=== PATIENT | male | born 1985 | race Caucasian/White ===

== ENCOUNTER 2019-02-23 11:32 | Inpatient (IN) ==
--- NOTE | 2019-02-07 11:38 | PAT Medication Instructions ---
Medication Instructions Date of Service February 07, 2019 Home Medications ibuprofen [Motrin IB] 200 mg PO Q6H PRN pantoprazole [Protonix] 40 mg PO BID ASK your surgeon for instructions ibuprofen [Motrin IB] 200 mg PO Q6H PRN Take morning of surgery With a small sip of water, OTHERWISE NOTHING TO EAT OR DRINK AFTER MIDNIGHT: pantoprazole [Protonix] 40 mg PO BID Take evening before surgery pantoprazole [Protonix] 40 mg PO BID Other Notes If you have any questions please call us at [phone] or [phone] or [phone] or [phone]
--- NOTE | 2019-02-08 14:10 | Anesthesiology Consultation ---
Date of Service February 08, 2019 Assessment & Plan (1) Encounter for pre-operative examination: - Awaiting review preop testing (labs, EKG, CXR). Chart Review Chart Review: Patient seen in Pre Admission Testing Teaching & Discussion Pre-Anesthesia Teaching/Discussion Notes: Instructed NPO after midnight before surgery,except medications with 15 cc of water. Medication instructions provided according to the PAT guidelines. History Surgery Operation Date: 02/23/19 14:35 Proposed Procedures p L4-S1 Decompression and Fusion, Possible L3-L4, Spinal Cord Monitoring - Yunior Garcia DO Height/Weight Height: 6 ft Weight: 131.6 kg Allergies Allergy/AdvReac Type Severity Reaction Status Date / Time No Known Allergies Allergy Verified 02/05/19 15:04 Medications Home Medications Medication Instructions Recorded Confirmed Last Taken ibuprofen [Motrin IB] 200 mg PO Q6H PRN 02/05/19 02/05/19 Unknown pantoprazole [Protonix] 40 mg PO BID 02/05/19 02/05/19 Unknown Past Medical History Medical History Degenerative disc disease Focal nodular hyperplasia of liver GERD (gastroesophageal reflux disease) controlled Hearing deficit right ear History of anxiety History of depression Obesity Osteoarthritis PTSD (post-traumatic stress disorder) Spinal stenosis TBI (traumatic brain injury) 2005 - residual memory loss, headaches Exercise / Class Metabolic Activity III < 4 Walking/Shop/Light housework Past Family History Family History Grandfather (Maternal) Family history of diabetes mellitus Grandmother (Maternal) Family history of diabetes mellitus Past Surgical History Surgical History History of colonoscopy History of esophagogastroduodenoscopy (EGD) History of hernia repair as an History of wisdom tooth extraction Past Anesthesia History No Hx of Anesthesia Complications *Brother: Post-op O2 sats dropped with multiple shoulder surgeries* History of PONV No Hx of PONV and No Hx of Motion Sickness Social History Smoking Status: Current every day smoker tobacco type: cigarettes Smoking cigarettes per day: 1 cig per day Do You Dip or Chew Tobacco: No Hx Alcohol Use: Yes Alcohol type: beer and hard liquor alcohol intake frequency: a few times a week Hx Substance Use: No substance use type: does not use Review of Systems Reflux controlled. Patient denies chest pain, shortness of breath, cough, wheezing, palpitations. Physical Exam Vital Signs VITALS BP 124/84 P 87 TEMP 98.61 SP02 97%RA RESP 16 PHYSICAL Full neck and c-spine range of motion. Full TMJ range of motion. TMD 3 finger breaths Mallampati Score 2 Dentition: caps on upper front, missing molars Lungs: clear throughout to auscultation Cardiac: regular rate and rhythm, no murmurs noted Spine: normal Carotid arteries: negative bruit Extremities: no edema Trimmed luo.
--- NOTE | 2019-02-08 15:01 | XRay Report ---
XR chest Pre-admission PA/Lat CLINICAL HISTORY: 33 years-old Male presenting with preoperative evaluation. TECHNIQUE: PA and lateral views of the chest were obtained. COMPARISON: None. FINDINGS: Cardiomediastinal silhouette normal. Lungs and pleural spaces clear. Osseous structures normal. Upper abdomen normal. IMPRESSION: 1. No acute cardiopulmonary disease. Electronically signed by: Elias Canales M.D. 02/08/2019 3:00 PM
[2019-02-08 15:36] LABS: Basophils # (auto) 0.03 K/uL (0-0.2); Basophils % (auto) 0.4 %; Eosinophils # (auto) 0.17 K/uL (0-0.5); Hematocrit (blood only) 42.3 % (42-52); Hemoglobin 14.3 g/dL (14.0-18.0); Immature Granulocytes # (auto) 0.03 K/uL (0.00-0.02); Immature Granulocytes % (auto) 0.4 %; Lymphocytes # (auto) 1.55 K/uL (1.2-3.4); Lymphocytes % (auto) 18.3 %; Mean Corpuscular Hemoglobin 31.3 pg (25-34); Mean Corpuscular Hgb Conc 33.8 g/dL (32-36); Mean Corpuscular Volume 92.6 fL (80-100); Mean Platelet Volume 10.6 fL (7.4-10.4); Monocytes # (auto) 0.51 K/uL (0.11-0.59); Neutrophils # (auto) 6.16 K/uL (1.4-6.5); Neutrophils % (auto) 72.9 %; Platelet Count 218 K/uL (130-400); RDW Coefficient of Variation 13.2 % (11.5-14.5); RDW Standard Deviation 44.7 fL (36.4-46.3); Red Blood Count 4.57 M/uL (4.7-6.1); White Blood Count 8.45 K/uL (4.8-10.8)
[2019-02-08 15:43] LABS: Appearance Urine Clear (Clear); Bacteria Urine Automated Negative (Negative); Bilirubin Urine Negative (Negative); Blood Urine Negative (Negative); Cast Urine Automated 0 /lpf (0-5); Color Urine Yellow; Epithelial Cell Urine Auto 0-5 /lpf (0-5); Glucose Urine UA Negative (Negative); Ketones Urine Negative (Negative); Leukocyte Esterase Urine Trace (Negative); Nitrite Urine Negative (Negative); Protein Urine Negative (Negative); RBC Urine Automated 0-4 /hpf (0-4); Specific Gravity Urine 1.019 (1.000-1.030); Urobilinogen Urine Negative (Negative); pH Urine 5.5 (4.5-7.5)
[2019-02-08 16:06] LABS: Partial Thromboplastin Ratio 0.9; Partial Thromboplastin Time 25.3 Seconds (21.0-31.0); Prothrombin Time 10.4 Seconds (9.0-12.0)
[2019-02-08 16:36] LABS: BUN Creatinine Ratio 13.5 (10-20); Calcium 8.9 mg/dl (8.5-10.1); Creatinine Clr Calc Pharmacy 143.2 ml/min; Est GFR (African American) 111.2; Est GFR (Non-African American) 95.9; Potassium 3.7 mmol/L (3.5-5.1)
[~2019-02-23 11:32] MED LIST: ACETAMINOPHEN 500 MG TAB PO SCH; CEFAZOLIN 3000MG 72.5 ML IV SCH; CeleBREX 200 MG CAP PO SCH; GABAPENTIN 900 MG DOSE PO SCH; LR 15ML/HR IV SCH
[2019-02-23] MEDS ORDERED: MIDAZOLAM HCL 1 MG/ML 2ML VIAL ONE (11:44)
[2019-02-23] MEDS ORDERED: fentaNYL citrate 100 MCG/2 ML VIAL ONE ×5 (11:44→13:52)
[2019-02-23] MEDS ORDERED: LABETALOL HCL IV 5 MG/ML 20ML IV PRN (12:36)
[2019-02-23] MEDS ORDERED: ATROPINE SULFATE 0.1 MG/ML 10ML SYR IV PRN (12:36)
[2019-02-23] MEDS ORDERED: ePHEDrine sulfate 50 MG/ML AMP IV PRN (12:36)
[2019-02-23] MEDS ORDERED: PHENYLEPHRINE 100MCG/ML 5ML SYR IV PRN (12:36)
[2019-02-23] MEDS ORDERED: MEPERIDINE HCL 25 MG/ML CARP IV PRN (12:36)
--- NOTE | 2019-02-23 12:38 | History & Physical Report ---
Date of Service February 23, 2019 Assessment & Plan (1) Spinal stenosis of lumbar region with radiculopathy: L4-S1 decompression and fusion possible L3-4 Present on Admission?: Yes History of Present Illness Chief Complaint: Back and leg pain Primary Care Provider: NO PCP This is a 33-year-old male who presents with chronic persistent back and leg pain. After failing extensive course of nonoperative care is here for surgical intervention. Allergies Allergy/AdvReac Type Severity Reaction Status Date / Time No Known Allergies Allergy Verified 02/23/19 11:58 Home Medications Home Medications Medication Instructions Recorded Confirmed Type ibuprofen [Motrin IB] 200 mg PO Q6H PRN 02/05/19 02/23/19 History pantoprazole [Protonix] 40 mg PO BID 02/05/19 02/23/19 History Past Med/Surg History Medical History Degenerative disc disease Focal nodular hyperplasia of liver GERD (gastroesophageal reflux disease) controlled Hearing deficit right ear History of anxiety History of depression Obesity Osteoarthritis PTSD (post-traumatic stress disorder) Spinal stenosis TBI (traumatic brain injury) 2006 - residual memory loss, headaches Surgical History History of colonoscopy History of esophagogastroduodenoscopy (EGD) History of hernia repair as an infant History of wisdom tooth extraction Family History Grandfather (Maternal) Family history of diabetes mellitus Grandmother (Maternal) Family history of diabetes mellitus Social History Preferred Language: Nepali Communication Ability: Effective Kiss Setter Hand Required: No Beliefs That Will Affect Care: None Current Living Situation: Spouse Other Information That Helps Us Care for You: No Feels Safe at Home: Yes Safety Concerns: Feels Safe At This Time Smoking Status: Current every day smoker Tobacco Type: cigarettes ; Cigarettes Per Day: 1 cig per day ; Do You Dip or Chew Tobacco: No ; Second Hand Exposure: Yes ; Tobacco Cessation Education Requested by Patient: No Hx Alcohol Use: Yes Alcohol type: beer and hard liquor Hx Substance Use: No Physical Exam Physical Exam: Patient is alert and oriented neurologically intact. Results & Data Vital Signs (Past 12 Hours) Vital Signs Temp Pulse Resp BP Pulse Ox 02/23/19 11:52 36.8 C 68 20 137/83 98
--- NOTE | 2019-02-23 12:38 | History & Physical Bridge Note ---
Date of Service February 23, 2019 History & Physical Bridge Note I have examined the patient, reviewed the History & Physical and in the interval since the performance of the History & Physical I have noted the following changes of clinical significance: no changes noted
[2019-02-23] MEDS ORDERED: HYDROmorphone INJ 2 MG/ML SYR/VIAL ONE ×3 (12:40→16:29)
[2019-02-23] MEDS ORDERED: BACITRACIN INJ 50,000 UNIT VIAL ONE (13:05)
[2019-02-23] MEDS ORDERED: BUPIVACAINE/EPINEPHRINE 0.25% 1:200,000 30 ML VIAL ONE (13:05)
[2019-02-23] MEDS ORDERED: NEOSTIGMINE METHYLSULFATE 1 MG/ML 10ML VIAL ONE (14:00)
[2019-02-23] MEDS ORDERED: ESMOLOL HCL INJ 10 MG/ML 10ML VIAL IV ONE (14:00)
[2019-02-23] MEDS ORDERED: DEXAMETHASONE SOD INJ 4 MG/ML VIAL ONE (14:00)
[2019-02-23] MEDS ORDERED: LIDOCAINE HCL 2% 2 ML VIAL/AMP(20MG/ML) INFIL ONE (14:00)
[2019-02-23] MEDS ORDERED: PROPOFOL IV EMULSION 10 MG/ML 20 ML VIAL IV ONE (14:00)
[2019-02-23] MEDS ORDERED: ROCURONIUM BROMIDE 10 MG/ML 5 ML VIAL ONE ×2 (14:00→15:09)
[2019-02-23] MEDS ORDERED: ONDANSETRON INJ 2 MG/ML 2 ML VIAL ONE (14:00)
[2019-02-23] MEDS ORDERED: LARYING-O-JET KIT (LTA) ONE (14:00)
[2019-02-23] MEDS ORDERED: GLYCOPYRROLATE 0.2 MG/ML VIAL ONE (14:00)
[2019-02-23] MEDS ORDERED: FLOSEAL HEMOSTATIC MATRIX 10ML TOP ONE (15:36)
--- NOTE | 2019-02-23 15:55 | Operative Report ---
Post Operative Report Pre & Post Diagnosis Operation Date: 02/23/19 13:55 Pre-Op Diagnosis: Spinal stenosis of lumbar region with radiculopathy Post-Op Diagnosis: Spinal stenosis of lumbar region with radiculopathy I identified the patient and participated in the time-out.: Yes Procedure Operation Date: 02/23/19 13:55 Actual Procedures #1 lumbar decompression with bilateral medial facetectomies foraminotomies L4-5 L5-S1. #2 posterior spinal fusion L4-5 L5-S1. #3 placement posterior instrumentation L4-5 L5-S1. #4 interbody fusion L4-5 L5-S1. #5 placement of titanium 13 x 26 mm cage at L4-5 and L5-S1. #6 placement locally harvested morselized autograft in the posterior lateral gutters. #7 placement infuse collagen sponge bone master graft in the interbody space and posterior lateral gutters. Surgeon Yunior Garcia, DO Clean Up Person Willard Morgan Estimated Blood Loss 300 Findings See Below The patient is 6 foot tall weighing over 128 kg with a BMI in excess of 38. Patient's body habitus did create significant technical difficulty requiring her deepest retractors and longus instruments in order to perform his procedure. This added at least 50% increase in operative time. Specimens None Indications This is a 33-year-old male presents with above-mentioned diagnosis after failing extensive course of nonoperative care elected to go the beverage procedure. Description of Procedure Patient was met with identified informed consent obtained. Patient was then taken to the operative suite underwent intubation placed in a prone position the Ferny table on top of the Tereso frame. All bony prominences well-padded eyes inspected to ensure no external pressure placed upon them. This point the lumbar spine was prepped and draped in the normal sterile fashion. Sharp dissection with the assistance of Bovie cautery was performed down to and exposing the lamina and transverse processes of L4-L5 and sacral ala bilaterally. From a caudal cephalad fashion complete laminectomy of L5 and L4 was performed including bilateral medial facetectomies and foraminotomies addressing severe stenosis. Pedicle screw was then placed in L4-L5 and S1 levels bilaterally with assistance of fluoroscopy and proper sized latisha placed. By way of a trans-foramen approach and left complete discectomy of L5-S1 was performed endplates curetted to subcortical bleeding bone and a 13 x 26 mm titanium cage filled with osteo-bone graft tapped in position. Then proceeded to L4-[address] of a transforaminal approach and left complete discectomy performed endplates curetted to subcortical bleeding bone and again a 13 x 26 mm titanium cage filled with osteo-bone graft tapped in position. The rods were then compressed locked into final position bilaterally. The transverse processes of L4-L5 and the sacral ala burred to subcortical bleeding bone. Infuse collagen sponge master graft and local autograft placed in the posterior lateral gutters. 15 round WOODY drain inserted. Incision was then closed with 1 Vicryl in the fascia 2-0 Vicryl subcutaneously and 4 Monocryl for final skin closure. Steri-Strip sterile dressings placed. Patient will continue PACU stable disc. Please note Willard Morgan present throughout the entire procedure involved in patient positioning complex portions of the surgery and final skin closure. Lastly spinal cord monitoring was utilized that the procedure and no changes noted. I attest to the content of the Intraoperative Record and any orders documented therein. Any exceptions are noted below.
[2019-02-23] MEDS: fentaNYL citrate 100 MCG/2 ML VIAL IV PRN ×4 (16:29→16:44)
[2019-02-23] MEDS: ONDANSETRON INJ 2 MG/ML 2 ML VIAL IV PRN ×2 (16:56→17:10)
--- NOTE | 2019-02-23 16:59 | Fluoroscopy Report ---
FL lumbar spine 2-3V HISTORY: 33 years-old Male L4-S1 DECOMPRESSION AND FUSION chronic low back pain COMPARISON: None available TECHNIQUE: 2 spot fluoroscopic images of the lumbar spine were obtained utilizing 28.1 seconds fluoro scopy time FINDINGS: Laminectomy with posterior interbody latisha and screw fusion and discectomy changes at L4-S1. Alignment appears satisfactory. The hardware appears intact. IMPRESSION: Fluoroscopic assistance as above. Please see operative report for further details. ACT 112: Negative or not required by law. The above report was generated using voice recognition software. It may contain grammatical, syntax o r spelling errors. Electronically signed by: Mitch Cronin M.D. 02/23/2019 4:58 PM
[2019-02-23] MEDS: HYDROmorphone INJ 1 MG/ML SYRINGE IV PRN ×2 (17:00→17:05)
--- NOTE | 2019-02-23 17:25 | Anesthesiology Progress Note ---
Date of Service February 23, 2019 Anesthesia Post Procedure Vital Signs Vital Signs: Temp Pulse Pulse Resp BP BP Pulse Ox 02/23/19 17:10 36.4 C L 67 14 113/66 98 02/23/19 17:00 68 14 123/63 93 02/23/19 16:50 55 L 14 129/69 97 02/23/19 16:40 53 L 14 118/66 94 02/23/19 16:30 64 14 117/66 97 02/23/19 16:22 36.2 C L 66 14 146/67 H 96 02/23/19 11:52 36.8 C 68 20 137/83 98 Pain Intensity Lower Back: Pain Intensity: 7 Transfer of Care Handoff Completed per policy Notes Mental Status: alert / awake / arousable and participated in evaluation Patient Amnestic to Procedure: Yes Nausea / Vomiting: adequately controlled Pain: adequately controlled Airway Patency, RR, SpO2: stable & adequate BP & HR: stable & adequate Hydration State: stable & adequate Anesthetic Complications: no major complications apparent and Pt Satisfied with anesthetic care
[2019-02-23] MEDS ORDERED: SOD PHOSPHATE/SOD BIPHOSPHATE ENEMA 132 ML BTL PR PRN (17:43)
[2019-02-23] MEDS ORDERED: HYDROmorphone INJ 0.5 MG/0.5 ML SYR IV PRN (17:43)
[2019-02-23] MEDS ORDERED: HYDROmorphone INJ 1 MG/ML SYRINGE IV PRN (17:43)
[2019-02-23] MEDS ORDERED: ALUMINUM/MAGNESIUM SUSP 30 ML UDC PO PRN (17:43)
[2019-02-23] MEDS ORDERED: LORazepam 0.5 MG/1 ML VIAL IV PRN (17:43)
[2019-02-23] MEDS ORDERED: PROMETHAZINE HCL 12.5 MG in SODIUM CHLORIDE 0.9% 50 ML IV PRN (17:43)
[2019-02-23] MEDS ORDERED: ONDANSETRON INJ 2 MG/ML 2 ML VIAL IV PRN (17:43)
[2019-02-23] MEDS ORDERED: DO NOT ADMINISTER PNEUMOCOCCAL VACCINE PRN (17:43)
[2019-02-23] MEDS ORDERED: ONDANSETRON 4 MG OD TAB PO PRN (17:43)
[2019-02-23] MEDS ORDERED: bisacodyL 10 MG SUPP PR PRN (17:43)
[2019-02-23] MEDS ORDERED: ACETAMINOPHEN 500 MG TAB PO PRN (17:43)
[2019-02-23] MEDS ORDERED: NALOXONE HCL 0.4 MG/1 ML VIAL/CARP IV PRN (17:43)
[2019-02-23] MEDS ORDERED: METOCLOPRAMIDE HCL INJ 5 MG/ML 2 ML VIAL IV PRN (17:43)
[2019-02-23] MEDS ORDERED: TRAMADOL HCL 50 MG TABLET PO PRN (17:43)
[2019-02-23] MEDS ORDERED: FAMOTIDINE 20 MG TAB PO PRN (17:43)
[2019-02-23] MEDS ORDERED: MAGNESIUM HYDROXIDE SUSP 30 ML UDC PO PRN (17:43)
[2019-02-23] MEDS ORDERED: DO NOT ADMINISTER FLU VACCINE PRN (17:43)
[2019-02-23] MEDS ORDERED: ACETAMINOPHEN 1,000 MG/100 ML VIAL IV PRN (17:43)
[2019-02-23] MEDS: KETOROLAC 30 MG/ML VIAL IV SCH (18:31)
[2019-02-23] MEDS: LACTATED RINGER'S 1,000 ML IV SCH (20:24)
[2019-02-23] MEDS: DOCUSATE SODIUM/SENNA 50/8.6MG TAB PO SCH (20:26)
[2019-02-23] MEDS: PANTOprazole 40 MG TAB PO SCH (20:27)
[2019-02-24] MEDS: KETOROLAC 30 MG/ML VIAL IV SCH ×3 (00:07→12:47)
[2019-02-24] MEDS: LACTATED RINGER'S 1,000 ML IV SCH (03:02)
[2019-02-24] MEDS: POLYETHYLENE (MIRALAX) 17 GM PACK PO SCH ×3 (05:32→17:08)
[2019-02-24 05:50] LABS: BUN Creatinine Ratio 15.1 (10-20); Calcium 8.7 mg/dl (8.5-10.1); Creatinine Clr Calc Pharmacy 178.6 ml/min; Est GFR (African American) 134.1; Est GFR (Non-African American) 115.7; Potassium 4.2 mmol/L (3.5-5.1)
[2019-02-24 05:56] LABS: Hematocrit (blood only) 35.5 % (42-52); Immature Granulocytes # (auto) 0.04 K/uL (0.00-0.02); Immature Granulocytes % (auto) 0.3 %; Lymphocytes # (auto) 0.84 K/uL (1.2-3.4); Lymphocytes % (auto) 6.7 %; Mean Corpuscular Hgb Conc 33.8 g/dL (32-36); Mean Corpuscular Volume 91.7 fL (80-100); Mean Platelet Volume 10.3 fL (7.4-10.4); Monocytes # (auto) 0.64 K/uL (0.11-0.59); Monocytes % (auto) 5.1 %; Neutrophils # (auto) 11.08 K/uL (1.4-6.5); Neutrophils % (auto) 87.9 %; Platelet Count 215 K/uL (130-400); RDW Coefficient of Variation 13.1 % (11.5-14.5); RDW Standard Deviation 43.5 fL (36.4-46.3); Red Blood Count 3.87 M/uL (4.7-6.1)
[2019-02-24] MEDS: OXYCODONE HCL IR 5 MG TAB (IMMEDIATE RELEASE) PO PRN ×5 (07:33→20:55)
[2019-02-24] MEDS: PANTOprazole 40 MG TAB PO SCH ×2 (07:33→20:55)
--- NOTE | 2019-02-24 10:09 | Orthopedic Progress Note ---
Date of Service February 24, 2019 Assessment & Plan (1) Spinal stenosis of lumbar region with radiculopathy: This time we will continue physical therapy monitor his WOODY output anticipate discharge home Tuesday. Present on Admission?: Yes Subjective Patient's back pain is controlled leg pain markedly improved. Physical Exam Physical Exam: Patient is in the chair at the bedside. Is good strength testing. Appears comfortable. Results & Data Vital Signs (Past 12 Hours) Vital Signs Temp Pulse Resp BP Pulse Ox 02/24/19 07:18 36.7 C 75 20 111/68 95 02/24/19 03:58 37.0 C 71 16 119/65 92 02/23/19 23:13 37.0 C 91 H 16 144/71 H 96
--- NOTE | 2019-02-24 19:04 | Anesthesiology Progress Note ---
Date of Service February 24, 2019 Anesthesia Post Procedure Vital Signs Vital Signs: Temp Pulse Pulse Resp BP Pulse Ox 02/24/19 15:32 37.1 C 71 18 144/74 H 96 02/24/19 13:22 77 18 123/72 97 02/24/19 07:18 36.7 C 75 20 111/68 95 02/24/19 03:58 37.0 C 71 16 119/65 92 02/23/19 23:13 37.0 C 91 H 16 144/71 H 96 02/23/19 20:46 37 C 70 20 129/75 96 02/23/19 20:03 37.0 C 70 17 112/73 94 Pain Intensity Lower Back: Pain Intensity: 3 Notes Mental Status: alert / awake / arousable and participated in evaluation Patient Amnestic to Procedure: Yes Nausea / Vomiting: adequately controlled Pain: adequately controlled Airway Patency, RR, SpO2: stable & adequate BP & HR: stable & adequate Hydration State: stable & adequate Anesthetic Complications: no major complications apparent and Pt Satisfied with anesthetic care
[2019-02-24] MEDS: DOCUSATE SODIUM/SENNA 50/8.6MG TAB PO SCH (20:54)
[2019-02-25] MEDS: POLYETHYLENE (MIRALAX) 17 GM PACK PO SCH ×4 (00:16→18:37)
[2019-02-25] MEDS: OXYCODONE HCL IR 5 MG TAB (IMMEDIATE RELEASE) PO PRN ×5 (00:58→19:47)
[2019-02-25] MEDS: PANTOprazole 40 MG TAB PO SCH ×2 (07:23→21:25)
[2019-02-25] MEDS: DEXAMETHASONE SOD PHOSPHATE 8 MG in SYRINGE 0 ML IV SCH (07:23)
[2019-02-25] MEDS: LORazepam 0.5 MG TAB PO PRN ×2 (08:02→17:01)
--- NOTE | 2019-02-25 10:00 | Orthopedic Progress Note ---
Date of Service February 25, 2019 Assessment & Plan (1) Spinal stenosis of lumbar region with radiculopathy: At this time we will continue physical therapy monitor WOODY output and advance his bowel regimen. Anticipate discharge home tomorrow. Present on Admission?: Yes Subjective Patient's back pain controlled leg symptoms improved. Physical Exam 2 Physical Exam: Patient is good strength testing appears comfortable. Results & Data Vital Signs (Past 12 Hours) Vital Signs Temp Pulse Pulse Resp BP BP Pulse Ox 02/25/19 06:50 36.5 C 78 16 103/57 L 95 02/25/19 00:00 37.0 C 71 16 114/65 96
[2019-02-25] MEDS: DOCUSATE SODIUM/SENNA 50/8.6MG TAB PO SCH (21:25)
[2019-02-26] MEDS: POLYETHYLENE (MIRALAX) 17 GM PACK PO SCH ×2 (00:16→05:45)
[2019-02-26] MEDS: OXYCODONE HCL IR 5 MG TAB (IMMEDIATE RELEASE) PO PRN ×2 (05:49→10:52)
[2019-02-26] MEDS: PANTOprazole 40 MG TAB PO SCH (07:29)
[2019-02-26] MEDS: DEXAMETHASONE SOD PHOSPHATE 8 MG in SYRINGE 0 ML IV SCH (07:29)
--- NOTE | 2019-02-26 09:50 | Discharge Summary ---
Date of Service February 26, 2019 Admission HPI Per Admitting Provider This is a 33-year-old male who presents with chronic persistent back and leg pain. After failing extensive course of nonoperative care is here for surgical intervention. Principal Diagnosis Lumbar spinal stenosis with radiculopathy Discharge Data Allergies Allergy/AdvReac Type Severity Reaction Status Date / Time No Known Allergies Allergy Verified 02/23/19 11:58 Consultations 02/23/19 17:43 Consult Case Management - Discharge Planning Routine Procedures Performed Operation Date: 02/23/19 13:55 Actual Procedures p L4-S1 Decompression and Fusion, Spinal Cord Monitoring(Not Applicable) - Yunior Garcia DO Ordered Studies 02/23/19 07:00 FL fluoroscopy <1hr Routine [place] lumbar spine 2-3V Routine Hospital Course (1) Spinal stenosis of lumbar region with radiculopathy: Patient underwent lumbar decompression fusion tolerated well taken to orthopedic for postoperative postop day 1 is up and ambulating leg pain improved progressed appropriately through postop day 2. Postop day 3 he was neurologically intact comfortable discharge home discharge orders instructions from the chart for further review. Total Time Total Time Spent Total Time Spent (In Minutes): 20 minutes Discharge Plan Discharge Items Patient Disposition: Home - Self-Care Reason For Visit: LUMBAR IV DISC DISORDERS W/RADICULOPATHY Discharge Diagnosis: Lumbar spinal stenosis with radiculopathy Activity: Per Instructions section Non-emergency contact: Primary Care Provider Call non-emergency contact if: you have any medication questions Follow-up/Referrals: PCP,NO [Primary Care Provider] - Diet: Regular Addtl Attending Provider Instructions: ACTIVITY RECOMMENDATIONS: SELF CARE INSTRUCTIONS AFTER THORACIC/LUMBAR FUSIONS 1. You may walk to your tolerance. It is good exercise for your legs and back. Expect some back and intermittent leg aches and pains. 2. You may perform "counter-top" level activities (make a sandwich, nina with a project, etc.). 3. No bending or lifting of more than 10 pounds or back twisting of any nature (roll like a log when turning in bed). 4. You may ride in a car for 20-30 minutes at a time. No driving until after your first visit with your doctor. 5. Frequent changes of position and restricting sitting to 30 minutes at a time will help limit the amount of back spasms and stiffness you may experience. 6. You may discontinue the use of ambulatory aids (cane, crutches, etc.) once your strength and confidence allow. 7. You may brazing furnace feeder the shower and let water strike your incision when you arrive home at least once daily. Do not take a tub bath, sit in a hot tub or go into a swimming pool until after your first recheck in the office. SPECIAL CARE INSTRUCTIONS: VERY IMPORTANT TO READ AND REVIEW A. Your surgical incision has been closed with a cosmetic suture under the skin that will dissolve in about 6 weeks. In 14 days, you can use a pair of clean scissors and cut the suture that is left outside of the skin at the ends of your incision. 1. The small skin tapes can be removed 7 days after surgery if they have not fallen off by that point. 2. You may keep the wound open to air as much as possible to promote healing after post-op day number 5 unless told otherwise by your doctor. 3. If you think the wound looks like it is becoming infected (redness or worsening drainage) and/or you are experiencing fever, chill or worsening back pain and muscle spasms, contact the office so that we may evaluate you as soon as possible. B. Complications are uncommon, but please contact us if you have any signs or symptoms of: 1. wound infection (fever higher than 102.5 degrees F, redness, separation of wound, drainage, or increasing pain from the incision) 2. blood clots in legs (pain, swelling, redness and warmth in legs) 3. urinary tract infection (fever higher than 102.5 degrees F, burning upon urination or increased frequency of urination) 4. nerve problems (inability to walk on your toes or heels, numbness, loss of bowel or bladder control) 5. any other symptoms that concern you C. Please call the office at if you have any concerns or q uestions about your operation or recovery. D. No smoking! Smoking drastically decreases the chance of a solid fusion. E. Do not take any anti-inflammatory medications (Indocin, Advil, Motrin, Aspirin, Naprosyn, etc.) as these may inhibit the chance of a solid fusion. Tylenol is okay to take for pain. MANAGING PAIN AFTER SPINAL SURGERY 1. Narcotic medication is intended for short-term use and will be provided for surgical pain. Surgical pain usually lasts for a period of 4-6 weeks. Narcotic medication includes Percocet, Vicodin, Darvocet, Tylenol #3 or Lortab. 2. Longer-term pain is more appropriately treated with non-narcotic medication such as Tylenol ES. 3. Muscle spasm is not appropriately treated with narcotics. Muscle relaxers such as Soma, Flexeril or Skelaxin can be used along with Tylenol ES. 4. Remember that we all live with some "aches and pains". This is not unusual or uncommon after an injury or as we get older. a. Back pain is expected and may include muscle spasms for 4 to 6 weeks after surgery. The pain should gradually improve. If the pain worsens for no apparent reason, please contact the office. b. Intermittent leg pain may also be experienced and should not be concerned about unless it worsens for no apparent reason. If so, please contact the office. 5. We will provide appropriate medication within the normal guidelines of their prescribed use. We will also be very cautious and aware of potential abuse and extended duration of patients' medication needs. a. Pain medications are for your comfort and to assist with sleep and rest so that the tissue can heal. They are not provided in order to return to normal activity and should not be used through the day. To do so or worsening pain at night can result from ongoing tissue damage and development of tolerance to the prescribed medicine. 6. Please allow 2-3 days to process refills. Prescriptions will not be mailed but must be picked up at the office. FOLLOW UP VISIT: Keep your scheduled follow-up appointment. Any questions, please call the office at . Pending Studies at Discharge: No Stand-Alone Forms: [facility], Smoking Cessation Medications and DC Order Prescriptions: New tramadol 50 mg tablet 50 mg PO Q6H PRN (Reason: pain, moderate) Qty: 30 RF: 0 oxycodone 5 mg tablet 5 mg PO Q6H PRN (Reason: pain, severe) Qty: 30 RF: 0 Continued pantoprazole [Protonix] 40 mg Tablet,Delayed Release (Dr/Ec) 40 mg PO BID RF: 0 Discontinued ibuprofen [Motrin IB] 200 mg Capsule 200 mg PO Q6H PRN (Reason: Pain) RF: 0 Discharge Orders: Discharge Order (Routine); Ordered 12/30/19 Ordered By: Yunior Garcia Admission Data Admit Date/Time: 02/23/19 16:47 Attending Provider: Yunior Garcia Admit Provider: Yunior Garcia Primary Care Provider: PCP,NO Other Interventions: Discharge Summary Assessment (RN) Last Done: 02/26/19 09:46
== END 2019-02-26 11:38 | disposition home or self-care (01) | DRG 455 ==
LOC: ASU 11:32 → 3E 16:47